=== PATIENT | male | born 1985 | race Caucasian/White ===

== ENCOUNTER 2023-09-30 09:51 | Emergency (ER) | payer OTHER, SELFPAY ==
[2023-09-30 09:53] VITALS: BP 146/90; PULSE 71; RESP 18; TEMP 36.2; O2SAT 97; BMI 42.2
--- NOTE | 2023-09-30 10:35 | EX.ED.UPPERE ---
HPI History of Present Illness Chief Complaint: Laceration Informant: patient Narrative Narrative: Left hand dominant male however is ambidextrous presents with puncture wound to his left hand. Working at home with fishing tape trying to advance wire when he got punctured the dorsal hand. No anticoagulants. Last tetanus at the age of 11 however had severe reactions at that time. Pain to the dorsum. Able to move his digits. No paresthesias. Tetanus Immunization: >10 years [facility] Medical History (Updated 09/30/23 @ 11:[address] Gideon Feliz DO) Asthma Back pain Home Medications albuterol sulfate 90 mcg/actuation aerosol inhaler (ProAir HFA) 1 inh inhalation ONCE 12/17/19 [History Last Taken Unknown] bupropion HCl 75 mg tablet 75 mg PO TID 12/17/19 [History Last Taken Unknown] lansoprazole 30 mg capsule,delayed release 30 mg PO DAILY 12/17/19 [History Last Taken Unknown] Allergy/AdvReac Type Severity Reaction Status Date / Time Tetanus Vaccines and Toxoid Allergy Severe Anaphylaxis Verified 09/30/23 09:52 kiwi Allergy Rash Verified 12/19/19 11:12 Penicillins Allergy Unknown Verified 12/19/19 11:12 Family History Other Diabetes Heart disease Surgical History History of knee surgery Social History (Updated 12/19/19 @ 11:29 by Abhinav TORRES, PA) Smoking Status: Never smoker alcohol intake: current alcohol intake frequency: a few times a month ROS ROS ED Constitutional Constitutional ED: Denies chills, fever(s) or sweats Eyes Eyes: Denies change in vision ENT ENT ED: Denies dysphagia or sore throat Cardiovascular Cardiovascular: Denies chest pain, leg edema, palpitations or racing heartbeat Respiratory/Chest Respiratory/Chest: Denies cough, dyspnea or dyspnea on exertion Gastrointestinal Gastrointestinal: Denies abdominal pain, diarrhea, nausea or vomiting Genitourinary Genitourinary ED: Denies dysuria, hematuria or urinary frequency Musculoskeletal Musculoskeletal: Denies back pain, extremity pain or neck pain Integumentary Reports wounds; Denies rash Neurologic Neurologic: Denies headache(s), paresthesias or weakness EXAM Physical Exam Const Vital Signs: 09/30/23 09:53 Temperature 97.1 F L Temperature Source Temporal Pulse Rate 71 Respiratory Rate 18 Blood Pressure 146/90 H Blood Pressure Mean 108 Pulse Ox 97 Oxygen Delivery Method Room Air Positive well nourished and well developed General Appearance ED: well developed and NAD HEENT Reports moist mucous membranes normocephalic and atraumatic Eyes PERRL, EOMs intact bilaterally and conjunctivae normal General Eye ED: Yes normal appearance of both eyes Neck no lymphadenopathy and supple General: Negative for tenderness Chest Wall Chest: Negative for tenderness Resp normal respiratory effort and normal air movement Effort and Inspection: symmetric chest movement; Negative for respiratory distress Cardio regular rate, regular rhythm and no murmurs Peripheral Pulses: pulses 2+ throughout GI normal to inspection, nondistended, normoactive bowel sounds and non-tender Palpation: Negative for guarding or rebound tenderness present Back/Spine no CVA tenderness and no thoracic nor lumbar tenderness Extremity Extremity Narrative: Left hand: 1 cm linear puncture laceration dorsum medial to the second metacarpal distally. Extensor mechanism of the index was intact. There is no active bleeding. Slight swelling around the tissues. No erythema or drainage. General Extremety ED: Negative for edema or tenderness General Extremity: Negative for edema Neuro oriented x3 and no sensory deficits noted Sensorium / Orientation: awake and alert Skin Skin Narrative: See above MDM MDM MDM Narrative Medical decision making narrative: Interventions / MDM: Differential diagnosis: Left hand laceration Diagnosis considered but do not suspect: No clinical tendon injury My EKG interpretation: N/A Imaging independently reviewed and interpreted by myself: Left hand x-ray 3 views: No radiopaque foreign bodies, no fractures. External documents reviewed: N/A Test considered but not ordered:N/A ED course: Patient unable to take tetanus due to allergic reaction. Puncture laceration a 1 cm. There is no tendon injury. X-ray obtained. There is no radiopaque foreign bodies. I reevaluate, laceration 1 center however was already closing, would not open.This is a low tension area. Wound was cleansed and dressed by nursing. Wound care discussed with the patient. Outpatient follow-up. Re-evaluation: stable Disposition discussed with patient/family/significant other: Patient Case discussed with consulting clinician: N/A This note was generated with [employer] software. It may contain incorrect words, spelling, and punctuation that were not noted in checking the note before signing. Discharge Plan Triage Chief Complaint: Laceration ED Provider: Gideon Feliz Dx/Rx/DC Orders Clinical Impression: Injury of hand, left, Laceration of hand, left Instructions: ED Wound Care Prescriptions: No Action lansoprazole 30 mg capsule,delayed release(DR/EC) 30 mg PO DAILY bupropion HCl 75 mg tablet 75 mg PO TID Rx Instructions: administer 6 hours apart albuterol sulfate [ProAir HFA] 90 mcg/actuation HFA aerosol inhaler 1 inh INHALATION ONCE Primary Care Provider: Bay Jacinto Referrals: Bay Jacinto DO [Primary Care Provider] - Activity Restrictions/Additional Instructions: X-ray left hand negative. Wound already closing, no indication for suturing. Wound care as discussed. Follow-up with your doctor. Disposition Disposition: Home, Self Care Discharge Date/Time: 09/30/23 11:37
--- NOTE | 2023-09-30 10:37 | RAD_ITS ---
STUDY: X-RAY - LEFT HAND REASON FOR EXAM: Male, 37 years old. Injury TECHNIQUE: 3 view(s) of the hand. COMPARISON: None. FINDINGS: Normal radiocarpal articulation. Normal distal radioulnar joint. Normal visualized carpal bones. Normal carpal articulations Normal carpometacarpal articulation of the thumb. Normal second through fifth carpometacarpal joints. Normal metacarpi. Normal metacarpophalangeal joint of the thumb. Normal interphalangeal joint of the thumb. Normal proximal and distal phalanges of the thumb. Normal metacarpophalangeal joints of the second through fifth fingers. Normal proximal and distal interphalangeal joints of the second through fifth fingers. Normal phalanges of the second through fifth fingers. The soft tissue structures are unremarkable. RAD/Hand Min 3 Views IMPRESSION: Normal x-ray examination of the hand. Electronically Signed: Jose Francisco Avery MD at 11:11 EST ,
== END 2023-09-30 11:37 | disposition home or self-care (01) ==
PROVIDERS: Emergency Provider Emergency Medicine; PCP Student in an Organized Health Care Education/Training Program; Visit Provider Emergency Medicine
DX: S61.432A Puncture wound without foreign body of left hand, initial encounter (principal); J45.909 Unspecified asthma, uncomplicated; W26.8XXA Contact with other sharp object(s), not elsewhere classified, initial encounter
CPT/HCPCS: 73130; 99282